=== PATIENT | female | born 1970 | race American Indian/Alaskan Native ===

== ENCOUNTER 2018-07-11 08:28 | Emergency (ER) | payer OTHER ==
[2018-07-11] MEDS ORDERED: BABY ASPIRIN PO ONE (08:44)
[2018-07-11] MEDS ORDERED: PEPCID PO ONE (08:45)
[2018-07-11] MEDS ORDERED: ULTRAM PO ONE (08:45)
[2018-07-11] MEDS ORDERED: ZOFRAN ODT PO ONE (08:45)
--- NOTE | 2018-07-11 08:47 | Emergency Department Report ---
ED Chest Pain HPI - General Chief Complaint: Abdominal Pain Stated Complaint: ABD/CHEST PAIN Time Seen by Provider: 07/11/18 08:42 Source: patient, EMS Mode of arrival: Ambulatory Limitations: No Limitations - History of Present Illness Initial Comments: Mrs. Lemus is a 48 yo female with hx of MDD, HTN, fibromyalgia who presents with chest and abdominal pain. Seen at OSH yesterday for abdominal pain. dx'd with stomach virus. Presents from [facility]. On voluntary status, not on involuntary hold. Pain bgain gradually yesterday, right side abdominal pain chest pain radiating to back, Vomiting x 24 hours. Has been treated for depression with SI. Hx of cholecystectomy, neck fusion, carpal tunnel surery on right currently denies SI/HI, she was transferred from [facility] to [facility] for SI with plan to harm herself, she has been released from involuntary status MD Complaint: chest pain -: Gradual, This morning Onset: during rest Pain Location: right chest, epigastric Pain Radiation: abdomen Severity: moderate Quality: sharp Consistency: constant Worsens With: movement - Related Data Previous Rx's Medication Instructions Recorded Last Taken Type Famotidine 20 mg PO BID 30 Days #60 tablet 07/11/18 Unknown Rx Promethazine [Phenergan TAB] 25 mg PO Q6HR PRN #10 tab 07/11/18 Unknown Rx Allergies Allergy/AdvReac Type Severity Reaction Status Date / Time lisinopril Allergy Hives Verified 07/11/18 12:15 Heart Score - HEART Score History: Slightly suspicious EKG: Normal Age: 45-65 Risk factors: 1-2 risk factors Troponin: < normal limit HEART Score: 2 ED Review of Systems ROS: Stated complaint: ABD/CHEST PAIN Other details as noted in HPI Comment: All other systems reviewed and negative Constitutional: denies: fever, malaise Cardiovascular: chest pain Gastrointestinal: abdominal pain, nausea, vomiting ED Past Medical Hx - Past Medical History Previous Medical History?: Yes Hx Hypertension: Yes - Surgical History Past Surgical History?: Yes Hx Cholecystectomy: Yes Additional Surgical History: Cholecystectomy. cervical fusion. 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, warehouse receiver - Medications Home Medications: Home Medications Medication Instructions Recorded Confirmed Last Taken Type Famotidine 20 mg PO BID 30 Days #60 tablet 07/11/18 Unknown Rx Promethazine [Phenergan TAB] 25 mg PO Q6HR PRN #10 tab 07/11/18 Unknown Rx ED Physical Exam - General Limitations: No Limitations General appearance: alert, in no apparent distress - Head Head exam: Present: atraumatic, normocephalic - Eye Eye exam: Present: normal appearance - ENT ENT exam: Present: mucous membranes moist - Neck Neck exam: Present: normal inspection, full ROM - Respiratory Respiratory exam: Present: normal lung sounds bilaterally. Absent: respiratory distress, wheezes, rales, rhonchi - Cardiovascular Cardiovascular Exam: Present: regular rate, normal rhythm, normal heart sounds. Absent: systolic murmur, diastolic murmur, rubs, gallop - GI/Abdominal GI/Abdominal exam: Present: soft, normal bowel sounds. Absent: distended, tenderness, guarding, rebound - Extremities Exam Extremities exam: Present: normal inspection - Back Exam Back exam: Present: normal inspection - Neurological Exam Neurological exam: Present: alert, oriented X3, normal gait - Psychiatric Psychiatric exam: Present: normal affect, normal mood - Skin Skin exam: Present: warm, dry, intact, normal color. Absent: rash ED Course Vital Signs 07/11/18 07/11/18 07/11/18 08:58 09:01 09:15 Temperature Pulse Rate 91 H 93 H Respiratory 28 H 15 Rate O2 Sat by Pulse 99 100 99 Oximetry 07/11/18 07/11/18 07/11/18 09:32 09:45 10:17 Temperature Pulse Rate 94 H 89 95 H Respiratory 26 H 17 14 Rate O2 Sat by Pulse 100 100 99 Oximetry 07/11/18 07/11/18 07/11/18 10:31 10:45 11:01 Temperature Pulse Rate 88 90 96 H Respiratory 11 L 15 17 Rate O2 Sat by Pulse 98 99 99 Oximetry 07/11/18 07/11/18 07/11/18 11:15 11:31 11:45 Temperature Pulse Rate 90 91 H 85 Respiratory 16 13 16 Rate O2 Sat by Pulse 99 100 100 Oximetry 07/11/18 07/11/18 11:59 12:00 Temperature 97.8 F Pulse Rate Respiratory 20 Rate O2 Sat by Pulse 100 Oximetry ED Medical Decision Making - Lab Data Result diagrams: 07/11/18 08:51 07/11/18 08:51 Laboratory Results - last 24 hr 07/11/18 07/11/18 08:51 08:51 WBC 6.5 RBC 5.38 H Hgb 13.5 Hct 42.2 MCV 79 MCH 25 L MCHC 32 RDW 15.3 H Plt Count 231 Lymph % (Auto) 27.8 [place] % (Auto) 7.6 H Eos % (Auto) 2.8 Baso % (Auto) 0.5 Lymph # 1.8 [place] # 0.5 Eos # 0.2 Baso # 0.0 Seg Neutrophils % 61.3 Seg Neutrophils # 4.0 Sodium 141 Potassium 3.2 L Chloride 103.0 Carbon Dioxide 29 Anion Gap 12 BUN 7 Creatinine 0.8 Estimated GFR > 60 BUN/Creatinine Ratio 9 Glucose 95 Calcium 8.5 Total Bilirubin 0.40 AST 69 H ALT 32 Alkaline Phosphatase 85 Troponin T < 0.010 Total Protein 7.6 Albumin 4.1 Albumin/Globulin Ratio 1.2 Lipase 24 - EKG Data 07/11/18 09:25 EKG obtained 0 19 Normal sinus rhythm rate 90 beats a minute normal axis prolonged QT interval no ST elevation nonspecific T wave flattening no ST elevation - Radiology Data Radiology results: report reviewed AP portable chest radiograph no acute process according to radiology report CT abdomen and pelvis: No acute process with the exception of possible gastroenteritis and esophagitis - Medical Decision Making Gastroenteritis, GERD, no indication of ACS or PE. Discharged with prescription for famotidine and promethazine Critical care attestation.: If time is entered above; I have spent that time in minutes in the direct care of this critically ill patient, excluding procedure time. ED Disposition Clinical Impression: GERD (gastroesophageal reflux disease), Gastroenteritis Disposition: -01 TO HOME OR SELFCARE Is pt being admited?: No Does the pt Need Aspirin: No Condition: Stable Instructions: Gastroesophageal Reflux in Children (ED), Gastroenteritis (ED) Prescriptions: Famotidine 20 mg PO BID 30 Days #60 tablet Promethazine [Phenergan TAB] 25 mg PO Q6HR PRN #10 tab PRN Reason: Nausea Referrals: PRIMARY CARE,MD [Primary Care Provider] - 3-5 Days [facility] [Outside] - 3-5 Days
[2018-07-11] MEDS ORDERED: NACL 0.9% 1000 ML 1,000 ML IV ONE (08:51)
[2018-07-11 09:03] LABS: Basophils % (Auto) 0.5 % (0.0-1.8); Eosinophils # (Auto) 0.2 K/mm3 (0.0-0.4); Eosinophils % (Auto) 2.8 % (0.0-4.3); Hematocrit 42.2 % (30.3-42.9); Hemoglobin 13.5 gm/dl (10.1-14.3); Lymphocytes # (Auto) 1.8 K/mm3 (1.2-5.4); Lymphocytes % (Auto) 27.8 % (13.4-35.0); Mean Corpuscular HGB Conc 32 % (30-34); Mean Corpuscular Volume 79 fl (79-97); Monocytes # (Auto) 0.5 K/mm3 (0.0-0.8); Monocytes % (Auto) 7.6 % (0.0-7.3); Platelet Count 231 K/mm3 (140-440); Red Blood Count 5.38 M/mm3 (3.65-5.03); Red Cell Distribution Width 15.3 % (13.2-15.2)
[2018-07-11] MEDS ORDERED: MORPHINE IV ONE (09:06)
--- NOTE | 2018-07-11 09:10 | XRay Report ---
PORTABLE CHEST: Chest pain. An AP portable view of the chest demonstrates a normal cardiac contour considering the limits of this technique. The lungs are clear with no evidence of infiltrate, fluid or failure. IMPRESSION: Normal portable chest.
[2018-07-11 09:22] LABS: Alanine Aminotransferase 32 units/L (7-56); Albumin 4.1 g/dL (3.9-5); BUN/Creatinine Ratio 9; Blood Urea Nitrogen 7 mg/dL (7-17); Calcium 8.5 mg/dL (8.4-10.2); Hemolysis Index 4
--- NOTE | 2018-07-11 10:51 | Cat Scan Report ---
CT ABDOMEN AND PELVIS WITH CONTRAST INDICATION: Abdominal pain. COMPARISON: None similar. FINDINGS: Abdomen and pelvis CT performed following intravenous administration of 100 cc of Omnipaque 300. LUNG BASES: Borderline cardiomegaly. Slight bibasilar dependent atelectasis. Nonspecific distal esophageal wall mild prominence/thickening, not excluded for gastroesophageal reflux and/or hiatal hernia, amongst others. ABDOMEN: Right hepatic lobe 18 cm in midclavicular length. Post cholecystectomy appearance with CBD caliber at the mary hepatis approximately 1.6 cm, gradually tapering on either side. A 0.7 cm ring calcification also seen at the mary hepatis adjacent to the cholecystectomy clips, axial image 55. Patent veins. Spleen, pancreas, adrenals, aorta, IVC and kidneys within normal limits. No significant ascites, though minimal fluid at the mesenteric root/between the leaves incidentally noted as on axial image 113, series 2. Few small, subcentimeter retroperitoneal and numerous shotty mesenteric lymph nodes noted on axial series 2, images 70-120 as measuring up to 1.6 x 0.8 cm, axial image 88. Few small, subcentimeter right lower quadrant mesenteric lymph nodes as well. Nonopacified GI tract evaluation limited, though grossly nonobstructive. Few fluid filled small bowel loops in the pelvis measure up to 2.1 cm caliber, axial image 134. Fluid also noted along the ascending and transverse colon. Descending colon decompressed with few distal descending colon diverticuli. Normal appendix. PELVIS: Small right hemipelvic free fluid. Uterus not excluded slightly retroflexed, situated in the right hemipelvis. Grossly unremarkable urinary bladder and nonopacified rectosigmoid. No size significant adenopathy. Mild multilevel spinal degenerative changes, including moderate to severe L4-L5 disc narrowing with vacuum phenomenon, mild degenerative spurring and disc bulge/osteophyte complex with spinal stenosis possible, sagittal image 106. Moderate to severe bilateral L3-L4 and L5-S1 facet arthropathy as well. Mild multilevel spinal degenerative spurring, more so lower thoracic. CONCLUSION: 1. CT appearance may suggest mild gastroenteritis versus other possibilities as mesenteric adenitis may also be considered as a diagnosis of exclusion in an appropriate setting. 2. Various other findings, including distal esophageal prominence/thickening, postcholecystectomy appearance and mid to lower lumbar spine degenerative changes, amongst others, as above. Thank you for the opportunity to participate in this patient's care.
== END 2018-07-11 13:14 | disposition home or self-care (01) ==
LOC: ED 08:28
DX: K52.9 Noninfective gastroenteritis and colitis, unspecified (principal); K21.9 Gastro-esophageal reflux disease without esophagitis; I10 Essential (primary) hypertension; F17.200 Nicotine dependence, unspecified, uncomplicated; Z88.8 Allergy status to other drugs, medicaments and biological substances
CPT/HCPCS: 36415; 71045; 74177; 80053; 83690; 84484; 85025; 93005; 93010; 96361; 96374; 99285; J2270; J7030; Q9967; Q0162

== ENCOUNTER 2020-12-20 04:33 | Emergency (ER) | payer SELFPAY ==
[2020-12-20 04:58] VITALS: BP 138/92
== END 2020-12-20 07:15 | disposition left against medical advice (07) ==
LOC: ED 04:33
DX: M79.643 Pain in unspecified hand (principal); M25.569 Pain in unspecified knee; Z53.21 Procedure and treatment not carried out due to patient leaving prior to being seen by health care provider